=== PATIENT | female | born 1995 | race Caucasian/White ===

== ENCOUNTER 2020-07-14 12:17 | Outpatient (REF) | payer MEDICAID, SELFPAY ==
[2020-07-15 12:48] LABS: Chlamydia Result Negative (Negative); GC Result Negative (Negative)
== END 2020-07-14 12:18 | disposition home or self-care (01) ==
LOC: LBN 12:17
PROVIDERS: Visit Provider Obstetrics & Gynecology Gynecology
DX: N89.8 Other specified noninflammatory disorders of vagina (principal); Z11.3 Encounter for screening for infections with a predominantly sexual mode of transmission
CPT/HCPCS: 87491; 87591; 87480; 87510; 87660